=== PATIENT | male | born 1960 | race Caucasian/White ===

== ENCOUNTER 2017-03-20 09:36 | Day surgery (SDC) | payer OTHER, SELFPAY ==
[2017-03-20] VITALS (7 sets, daily range): BP systolic 85–128; BP diastolic 51–92; PULSE 51–61; RESP 16; TEMP 36.2–36.3; O2SAT 97–100; BMI 26.4
--- NOTE | 2017-03-20 | EGD_PTH ---
PATIENT: SUKHWINDER CASTILLO LOC: [facility] U#:[id number] AGE/SX: 56/M ROOM: RE03/20/[address]: Dr. Cyril Johnson MD : 1960 BED: DIS: 03/20/2017 SPEC #: [id number] RECD: 03/20/17 12:31 STATUS: BRITTON FABI #: [id number] MAAME: 03/20/17 00:[address]: Cyril Johnson DEPT: SURGICAL PATHOLOGY RECD BY: Guerrero Post ENTERED: 03/20/17 13:30 SP TYPE: EGD BIOPSY DOUGLAS DR: Dr. Phillip Amaya MD Tissues: A - Gastric mucous membrane B - Gastric mucous membrane C - Sigmoid colon biopsy D - Rectum, NOS Procedures: Special Stain Group II Surgery Specimen Level IV Alcian Blue/PAS (control) HEADER OPERATION: EGD and colonoscopy PRE-OP DIAGNOSIS: RUQ pain TISSUE SUBMITTED: A ? Antral biopsy, B ? GE junction, C ? Mid sigmoid polyp, D ? Rectal polyp MICROSCOPIC DIAGNOSIS A. Antral biopsy: Mild gastritis. B. GE junction, biopsy: Fragments of gastroesophageal mucosa with focal Intestinal metaplasia (goblet cell metaplasia) consistent with Santana?s esophagus. Mild chronic inflammation. Negative for dysplasia. C. Mid sigmoid polyp, biopsy: Tubular adenoma. D. Rectal polyp, biopsy: Tubular adenoma. SJ:rg 03/21/17 COMMENT A. The results of immunohistochemistry for Helicobacter pylori will be reported separately ([id number]). B. Alcian blue/PAS stain with matched control is used in the evaluation of the specimen. MICROSCOPIC DESCRIPTION Slides are reviewed. A. The specimen shows fragments of gastric mucosa with chronic inflammatory cell infiltrates in the lamina propria consisting of lymphocytes and plasma cells, consistent with mild chronic gastritis. GROSS DESCRIPTION A - Received in fixative is one container labeled with the patient's name and designated antral biopsy. The specimen consists of one irregular fragment of light neal soft tissue that measures 0.4 x 0.3 x 0.1 cm. The specimen is totally submitted in one cassette. B - Received in fixative is one container labeled with the patient's name and designated GE junction. The specimen consists of multiple irregular fragments of light neal soft tissue that in aggregate measure 1 x 0.3 x 0.1 cm. The specimen is totally submitted in one cassette. C - Received in fixative is one container labeled with the patient's name and designated mid sigmoid polyp. The specimen consists of a pink-red polyp measuring 1.5 x 0.9 x 0.4 cm. The apparent base is inked. The specimen is bisected and submitted entirely in one cassette. D - Received in fixative is one container labeled with the patient's name and designated rectal polyp. The specimen consists of a piece of neal-pink polyp measuring 0.4 x 0.3 x 0.2 cm. The specimen is totally submitted in one cassette. / KRZYSZTOF:nathan 03/20/17 TC:1 CPT: 18354 x4, 87149
--- NOTE | 2017-03-20 | IMM_PTH ---
PATIENT: SUKHWINDER CASTILLO LOC: [facility] U#:[id number] AGE/SX: 56/M ROOM: RE03/20/[address]: Dr. Cyril Johnson MD : 1960 BED: DIS: 03/20/2017 SPEC #: [id number] RECD: 03/21/17 11:27 STATUS: BRITTON FABI #: [id number] MAAME: 03/20/17 00:[address]: Cyril Johnson DEPT: IMMUNOHISTOCHEMISTRY RECD BY: Brittany Reyes ENTERED: 03/21/17 11:28 SP TYPE: IMMUNO OTHR DR: Dr. Phillip Amaya MD Tissues: A - Stomach, NOS Procedures: H Pylori (initial) PHYSICIAN & INSTITUTION [place] [address] SPECIMEN INFORMATION: Tissue Source: A ? Antral biopsy Clinical Info: RUQ pain Specimen Number: [id number] CPT code: 27290 METHODOLOGY: Deparaffinized sections of prefer/formalin-fixed tissue or PAP/DQ stained slides are incubated with monoclonal/polyclonal antibodies/oligonucleotide probes. Localization is made via biotin free immunoperoxidase method. Appropriate controls are performed and reacted as expected. Results on target cell population are indicated in the following table: RESULTS: ANTIBODY / CLONE RESULT Block A H Pylori (polyclonal) negative These tests were developed and their performance characteristics determined by [facility]. They may not have been cleared or approved by the U.S. Food and Drug Administration. The FDA has determined that such clearance or approval is not necessary. INTERPRETATION: A. Antrum, biopsy: Negative for Helicobacter pylori organisms. SJ:nathan 03/23/17
--- NOTE | 2017-03-20 11:47 | PCM.OPRPT ---
Problem List (1) Abdominal pain in male Status: Acute (2) Personal history of colonic polyps Status: Acute Report of Operation Date of Procedure: 03/20/17 Pre-Operative Diagnosis: Right upper quadrant abdominal pain. Personal history of colon polyps. Post-Operative Diagnosis: Moderate hiatal hernia, distal esophagitis, mild antral gastritis. Pedunculated polyp of the mid sigmoid colon, sessile polyp of the rectum. Descending and sigmoid diverticulosis Surgery/Procedure Performed:: Esophagogastroduodenoscopy with antral and distal esophageal biopsies. Colonoscopy with hot snare polypectomy mid sigmoid and rectum Description of Surgical Findings:: Timeout and informed consent was obtained. 56-year-old gentleman was taken to the endoscopy space. His oropharynx anesthetized with Cetacaine. He was placed in a left lateral decubitus position. Throughout both the upper and lower endoscopy he received total 100 mg Demerol and 5 mg of Versed is intravenous sedation. Leksell gastroscope was inserted. Proximal mid distal esophagus not grossly remarkable. The EG junction was at 42 cm. Moderate hiatal hernia noted. There is evidence very much consistent with reflux esophagitis and linear erosions. Photographs were obtained. The scope was advanced in the stomach a mild antral erythema noted. No ulcerations. The scope was advanced through the pylorus and the first and portions of the duodenum were inspected. No gross abnormalities. The scope was withdrawn back into the stomach antral biopsy was obtained. The scope was retroflexed and the hiatal hernia noted. The cardia was unremarkable. Greater and lesser curvatures were not remarkable. The scope was placed back in antegrade viewing position and biopsies obtained of the antrum. Hemostasis was intact. Excess fluid and air was aspirated free. The procedure was then proceeded by withdrawing the scope to the distal esophagus. Distal esophageal biopsies were obtained. The scope was then further withdrawn without additional abnormality. Digital rectal exam was performed. Mild hemorrhoidal changes. 2+ enlarged firm diffusely prostate. No focal mass lesions. Flexible colonoscope inserted the rectum advanced through a somewhat tortuous sigmoid colon scope was advanced through the transverse colon and with some transabdominal pressure was advanced to the cecum. Bowel prep was adequate there still was some liquid stool located throughout the colon. The ileocecal valve area was nicely achieved. Scope was then carefully withdrawn from the ascending transverse descending and sigmoid colon. There was diverticulosis involving the descending and sigmoid colon though without evidence of inflammation. A pedunculated 2 cm long polyp was located in the mid sigmoid. A snare cautery blend setting of was used to resect this. I then placed a hemostatic clip at that site. The polyp was retrieved with suction. Hemostasis was intact. The scope was further withdrawn and a 7 mm sessile polyp of the rectum was identified. Photograph was obtained in a hot snare was used to resect and retrieved. The scope was retroflexed and hemorrhoidal changes noted. Excess fluid and air was aspirated free the procedure was completed with the patient tolerating it well. Impression Moderately large hiatal hernia with findings very much consistent with distal esophagitis. These findings would correlate with the patient's complaint of abdominal pain. Mild antral gastritis noted. We will initiate treatment with omeprazole 20 mg twice daily. But unrelated polyp of the mid sigmoid colon and sessile polyp of the rectum. Both with benign gross appearance. Sigmoid and descending colon diverticulosis. The patient will be notified of pathology results of all biopsies and polyp removals. Will recommend a follow-up colonoscopy in no greater than 3 years pending the pathology report. His previous colonoscopy was 2009. Findings the patient has a 2 mm polyp on gallbladder ultrasound. Pending treatment for reflux if symptoms per of abdominal pain persist then would consider hepatobiliary scan. The esophagitis however would correlate with his complaint of pain. Cc: Dr. Amaya The upper endoscopy was started with medications given at 1110. Scope was inserted at 1114. The upper scope was completed at 1118. The colonoscopy was initiated at 1121. The cecum was reached at 1127.19. The procedure was completed at 1143. Cyril Johnson M.D., F.A.C.S. Type of Anesthesia:: IV Sedation
== END 2017-03-20 12:46 | disposition home or self-care (01) ==
LOC: EN 09:36 → AC 09:38
PROVIDERS: Family Provider Family Medicine; PCP Family Medicine; Visit Provider Surgery
PROC: 0DJD8ZZ Inspection of Lower Intestinal Tract, Via Natural or Artificial Opening Endoscopic (ICD-10-PCS; CPT 45378; principal; 2017-03-20 10:40)
DX: K21.0 Gastro-esophageal reflux disease with esophagitis (principal); K29.50 Unspecified chronic gastritis without bleeding; K22.70 Barrett's esophagus without dysplasia; K44.9 Diaphragmatic hernia without obstruction or gangrene; K57.30 Diverticulosis of large intestine without perforation or abscess without bleeding; K56.2 Volvulus; D12.7 Benign neoplasm of rectosigmoid junction; Z87.19 Personal history of other diseases of the digestive system; F17.210 Nicotine dependence, cigarettes, uncomplicated
CPT/HCPCS: 43239; 45385; 88305; 88313; 88342; J7120

== ENCOUNTER → 2018-09-12 06:49 | Outpatient (CLI) | payer OTHER, SELFPAY ==
--- NOTE | 2018-09-12 06:53 | CT_ITS ---
STUDY: LOW DOSE CT LUNG CANCER SCREENING REASON FOR EXAM: Male, 57 years old. 48 pack-year history stopped 2 years ago. RADIATION DOSAGE (If Supplied By Facility): CTDIvol = ( 4.02 ) mGy, DLP = ( 133.41 ) mGycm TECHNIQUE: No contrast was administered. Low dose technique was utilized (average mAS-38 and kVp 120). 1.25 mm axial source images with a slice interval of 1.25-mm were reconstructed in lung windows. 2.5 mm axial source images with a slice interval of 2.5-mm were reconstructed in lung windows. 5.0 mm axial source images with a slice interval of 5.0-mm were reconstructed in soft tissue windows. Nodule measured using lung windows on PACS and/or independent workstation with automated measurement of minimum and maximum diameter. Nodule measurement reported as average diameter rounded to the nearest whole number. Growth is defined as an increase ins size of greater than 1.5 mm. COMPARISON: None. NODULES: Nodule #: 1 Density: Solid Lung location: Right upper lobe: 0.6 cm from pleura Location in series: Series Number: 2 Image: 137 Size - D1 x D2 mm: 4 x 4 mm: 4 mm average diameter Margin: Smooth Shape: Rounded Calcification: Yes Fat: No Temporal comparison: None Nodule #: 2 Density: Solid Lung location: Right middle lobe: 0.4 cm from pleura Location in series: Series Number: 2 Image: 49 Size - D1 x D2 mm: 8 x 6 mm: 7 mm average diameter Margin: Smooth Shape: Carrol shape Calcification: No Fat: No Temporal comparison: None Total lung nodules (excluding granulomas): 1 Emphysema: No Endobronchial lesion: No Aorta: Normal Coronary arteries: There are minimal coronary artery calcifications. Heart: Normal Pulmonary artery: Normal Mediastinal nodes: None Other chest and abdominal findings: Minimal degenerative changes of the thoracic spine. CT/Low Dose CT Lung Screening IMPRESSION: Lung-RADS category 3 - Continue screening with LDCT in 6 months. IMPORTANT NOTES FOR USE: ACR Lung-RADS Version 1.0 Assessment Categories Release Date: June 16, 2013 Category: Coded 0-4 bases on nodule(s) with highest degree of suspicion. Negative screen is defined as categories 1 and 2; a positive screen is defined as categories 3 and 4. Category 3 and 4A nodules that are unchanged on interval CT should be coded as category 2, and individuals returned to screening in 12 months. Category 4X: Category 3 or 4 nodules with additional imaging findings that increase the suspicion of lung cancer, such as spiculation, GGN that doubles in size in 1 year, enlarged lymph notes, etc. Category Modifiers: S (significant finding unrelated to lung cancer) and C (prior history of treated lung cancer) may be added to the 0-4 Lung-RADS Electronically Signed: Galdino Verdugo DO at 15:00 EDT Tel [phone], Service support ,
== END ==
PROVIDERS: Family Provider Family Medicine; PCP Family Medicine; Referring Provider Family Medicine; Visit Provider Family Medicine
DX: Z12.2 Encounter for screening for malignant neoplasm of respiratory organs (principal); Z87.891 Personal history of nicotine dependence
CPT/HCPCS: G0297

== ENCOUNTER → 2019-03-03 07:39 | Outpatient (CLI) | payer OTHER, SELFPAY ==
--- NOTE | 2019-03-03 07:42 | CT_ITS ---
STUDY: LOW DOSE CT LUNG CANCER SCREENING REASON FOR EXAM: Male, 58 years old. LUNG NODULE, LOW DOSE LUNG SCREENING. Pt was 30-40yr 1ppd smoker. Quit 3 yr ago RADIATION DOSAGE (If Supplied By Facility): CTDIvol = ( 4.02 ) mGy, DLP = ( 145.47 ) mGycm TECHNIQUE: No contrast was administered. Low dose technique was utilized (average mAS-38 and kVp 120). 1.25 mm axial source images with a slice interval of 1.25-mm were reconstructed in lung windows. 2.5 mm axial source images with a slice interval of 2.5-mm were reconstructed in lung windows. 5.0 mm axial source images with a slice interval of 5.0-mm were reconstructed in soft tissue windows. Nodule measured using lung windows on PACS and/or independent workstation with automated measurement of minimum and maximum diameter. Nodule measurement reported as average diameter rounded to the nearest whole number. Growth is defined as an increase ins size of greater than 1.5 mm. COMPARISON: CT chest September 12, 2018 NODULES: Nodule #: 1 Density: Solid Lung location: Right middle lobe: cm from pleura Location in series: Series Number: 2 Image: 148 Size - D1 x D2 mm: mm: 7 average diameter Margin: Smooth Shape: Oval Calcification: No Fat: No Temporal comparison: Stable Total lung nodules (excluding granulomas): 1 Emphysema: No Endobronchial lesion: No Aorta: Normal Coronary arteries: Mild coronary artery calcifications. Heart: Normal Pulmonary artery: Normal Mediastinal nodes: Normal Other chest and abdominal findings: No significant. Previously described right upper lobe nodule is a granuloma does not need to be followed. CT/Low Dose CT Lung Screening IMPRESSION: Stable right middle lobe 7 mm nodule. LRADS 2. IMPORTANT NOTES FOR USE: ACR Lung-RADS Version 1.0 Assessment Categories Release Date: June 16, 2013 Category: Coded 0-4 bases on nodule(s) with highest degree of suspicion. Negative screen is defined as categories 1 and 2; a positive screen is defined as categories 3 and 4. Category 3 and 4A nodules that are unchanged on interval CT should be coded as category 2, and individuals returned to screening in 12 months. Category 4X: Category 3 or 4 nodules with additional imaging findings that increase the suspicion of lung cancer, such as spiculation, GGN that doubles in size in 1 year, enlarged lymph notes, etc. Category Modifiers: S (significant finding unrelated to lung cancer) and C (prior history of treated lung cancer) may be added to the 0-4 Lung-RADS Electronically Signed: Donaldo Parker, at 21:33 EST Tel , Service support ,
== END ==
PROVIDERS: Family Provider Family Medicine; PCP Family Medicine; Referring Provider Family Medicine; Visit Provider Family Medicine
DX: Z12.2 Encounter for screening for malignant neoplasm of respiratory organs (principal); Z87.891 Personal history of nicotine dependence; R91.8 Other nonspecific abnormal finding of lung field
CPT/HCPCS: G0297

== ENCOUNTER → 2019-09-12 08:24 | Outpatient (CLI) | payer OTHER, SELFPAY ==
[2019-09-12 12:25] LABS: Absolute Lymphocyte Count 1.75 X10^3/uL (0.83-4.51); Absolute Neutrophil Count 3.4 X10^3/uL (2.0-7.7); Basophil# 0.01 X10^3/uL; Basophil% 0.2 % (0-1); Eosinophil# 0.17 X10^3/uL; Eosinophils% 2.9 % (0-5); Hematocrit 43.8 % (40-54); Lymphocyte # 1.75 X10^3/ul (4.0); Lymphocyte % 30.3 % (19-41); Mean Corp Hgb Conc 34.2 g/dL (32-36); Mean Corpuscular Hgb 31.3 pg (27.0-32.0); Mean Corpuscular Volume 91.3 fL (80-94); Mean Platelet Vol. 10.4 fl (6.2-12.0); Monocyte# 0.49 X10^3/uL; Monocyte% 8.5 % (0-10); NRBC Flagged by Analyzer 0 % (0-5); Neutrophil # 3.35 X10^3/uL (2.7-7.7); Neutrophil % 57.9 % (47-70); Platelet Count 196 K/mm3 (150-450); RBC Distribution Width SD 42.8 fl (35.1-43.9); White Blood Count 5.8 K/mm3 (4.4-11.0)
[2019-09-12 12:42] LABS: ALB/GLOB Ratio 1.3 RATIO (0.9-2.4); AST(SGOT) 23 U/L (15-37); Alanine Aminotransfer ALT/SGPT 37 U/L (16-61); Albumin, Serum 4.1 g/dL (3.2-5.0); Alkaline Phosphatase 65 U/L (45-117); Anion Gap 4 (5-15); BUN 16 mg/dL (7-18); Calcium,Total 10.3 mg/dL (8.5-10.1); Chloride 105 mmol/L (98-107); Cholesterol 203 mg/dL (200); Creatinine, Serum 1.07 mg/dL (0.70-1.30); EST Glomerular Filtration Rate 75 mL/min (>60); Est Glom Filt Rate - Afr Amer 90 mL/min (>60); Globulin 3.2 g/dL (2.2-4.2); Glucose 90 mg/dL (74-106); High Density Lipoprotein 47 mg/dL; PSA,Total - Annual Screen 0.52 ng/mL (0.00-4.00); Protein, Total 7.3 g/dL (6.4-8.2); Sodium Level 139 mmol/L (136-145); Thyroid Stim Hormone (TSH) 1.21 uIU/mL (0.358-3.74); Triglycerides 196 mg/dL; Very Low Density Lipoprotein 39 mg/dL (5-40)
[2019-09-12 12:47] LABS: Vitamin B12 332 pg/mL (211-911)
== END ==
PROVIDERS: PCP Family Medicine; Visit Provider Family Medicine
DX: R53.83 Other fatigue (principal); E78.5 Hyperlipidemia, unspecified; Z12.5 Encounter for screening for malignant neoplasm of prostate
CPT/HCPCS: 36415; 80053; 80061; 82607; 84153; 84443; 85025; G0103

== ENCOUNTER → 2020-10-13 17:16 | Outpatient (CLI) | payer OTHER, SELFPAY ==
--- NOTE | 2020-10-13 17:35 | RAD_ITS ---
STUDY: X-RAY - LUMBAR SPINE REASON FOR EXAM: Male, 59 years old. LOW BACK PAIN TECHNIQUE: 3 view(s) of the lumbar spine were obtained. COMPARISON: None FINDINGS: Normal lumbar lordosis. There is no substantial scoliosis. There is a normal alignment of the vertebrae. There is multilevel endplate spondylosis of the lumbar vertebrae. There is multi-level degenerative disc disease with multi-level disc space narrowing. There is no demonstrated fracture. No acute fracture. Multilevel bilateral facet hypertrophy, more significant from L3 through S1. There is atherosclerotic calcification of the abdominal aorta without a demonstrated aneurysm. RAD/Lumbar Spine 2 or 3 Views IMPRESSION: Multilevel disc degenerative disease with no acute fracture or subluxation. Electronically Signed: Paulina Ngo MD at 0:43 EDT , Service support ,
== END ==
PROVIDERS: PCP Family Medicine; Referring Provider Anesthesiology Pain Medicine; Visit Provider Anesthesiology Pain Medicine
DX: M54.9 Dorsalgia, unspecified (principal)
CPT/HCPCS: 72100

== ENCOUNTER → 2020-10-16 08:26 | Outpatient (CLI) | payer OTHER, SELFPAY ==
[2020-10-16 09:02] LABS: Color, Urine Yellow (Yellow); Glucose, Dipstick Normal (Normal); Ketone-Dipstick Negative (Negative); Leukocyte Esterase-Dipstick Negative /ul (Negative); Nitrite-Dipstick Negative (Negative); Occult Blood-Urine Negative /ul (Negative); Protein-Dipstick Negative (Negative); Urine Bilirubin Dipstick Negative (Negative); Urine Clarity Clear (Clear); Urine Urobilinogen Normal (Normal); Urine pH 6.5 (5.0 - 8.0)
== END ==
PROVIDERS: PCP Family Medicine; Referring Provider Family Medicine; Visit Provider Family Medicine
DX: R82.998 Other abnormal findings in urine (principal)
CPT/HCPCS: 81002

== ENCOUNTER → 2020-10-23 08:59 | Outpatient (CLI) | payer OTHER, SELFPAY ==
--- NOTE | 2020-10-23 09:14 | US_ITS ---
STUDY: ABDOMINAL ULTRASOUND - RIGHT UPPER QUADRANT REASON FOR VISIT: Male, 59 years old PAIN TECHNIQUE: Ultrasound evaluation of the right upper quadrant was performed with real-time and static obando-scale imaging. TECHNICAL QUALITY: Adequate. COMPARISON: None. FINDINGS: Liver: The liver measures 16.0 cm. There is increased echogenicity consistent with fatty infiltration. The bile ducts are within normal limits. There is hepatic color flow. The direction of portal flow is hepatopetal. There is no demonstrated mass lesion. Gallbladder: Normal distended gallbladder. The gallbladder wall measures 2 mm. There is a negative sonographic Jacobson''s sign. There is no pericholecystic fluid. There are no gallstones. Common Bile Duct (C.B.D.): The common bile duct measures 4 mm. Pancreas: Normal size of the head, body and tail of the pancreas. There is normal echogenicity of the pancreas. There is no demonstrated pancreatic mass or cyst. Right Kidney: Normal size of the right kidney. The right kidney measures 10.4 cm. Normal renal cortex. The right cortex measures 1.5 cm. 1.4 cm cyst in the midsection of the right kidney. 2 cm exophytic cyst lower pole the right kidney. There is no right hydronephrosis. US/Abdomen Limited IMPRESSION: Fatty infiltration of the liver. Electronically Signed: Eric Simpson MD at 10:47 EDT Tel , Service support ,
== END ==
PROVIDERS: PCP Family Medicine; Referring Provider Family Medicine; Visit Provider Family Medicine
DX: R10.11 Right upper quadrant pain (principal)
CPT/HCPCS: 76705

== ENCOUNTER 2021-12-21 07:50 | Day surgery (SDC) | payer OTHER, SELFPAY ==
--- NOTE | 2021-12-21 | IMM_PTH ---
PATIENT: SUKHWINDER CASTILLO LOC: EN U#:[id number] AGE/SX: 61/M ROOM: RE12/21/[address]: Dr. Lalito Powers DO : 1960 BED: DIS: 12/21/2021 SPEC #: [id number] RECD: 12/23/21 13:24 STATUS: BRITTON REPauline #: [id number] MAAME: 12/21/21 00:[address]: Lalito Powers DEPT: IMMUNOHISTOCHEMISTRY RECD BY: Brittany Reyes ENTERED: 12/23/21 13:25 SP TYPE: IMMUNO OT DR: KATEY Perez Tissues: B - Esophagus, NOS Procedures: P53 (initial) KI-67 (add) PHYSICIAN & INSTITUTION [address] [address] SPECIMEN INFORMATION: Tissue Source: B ? Distal esophagus Clinical Info: Santana?s esophagus, screening Specimen Number: [id number] CPT code: 08964, 87828 METHODOLOGY: Deparaffinized sections of prefer/formalin-fixed tissue or PAP/DQ stained slides are incubated with monoclonal/polyclonal antibodies/oligonucleotide probes. Localization is made via biotin free immunoperoxidase method. Appropriate controls are performed and reacted as expected. Results on target cell population are indicated in the following table: RESULTS: ANTIBODY / CLONE RESULT Block B P53 (DO-7) negative Ki-67 (30-9) positive, low These tests were developed and their performance characteristics determined by [facility]. They may not have been cleared or approved by the U.S. Food and Drug Administration. The FDA has determined that such clearance or approval is not necessary. The above immunohistochemical/dualISH markers are ordered and reviewed by the Pathologist. INTERPRETATION: B. Distal esophagus, biopsy: No evidence of dysplasia. AM:nathan 12/26/2021
[2021-12-21 08:17] VITALS: BP 127/83; PULSE 50; RESP 16; TEMP 36.4; O2SAT 100; BMI 30.2
[2021-12-21] MEDS: Lactated Ringers 1,000 ML 15 ML IV (08:22)
--- NOTE | 2021-12-21 09:15 | EGD_PTH ---
PATIENT: SUKHWINDER CASTILLO LOC: EN U#:[id number] AGE/SX: 61/M ROOM: RE12/21/[address]: Dr. Lalito Powers DO : 1960 BED: DIS: 12/21/2021 SPEC #: [id number] RECD: 12/21/21 14:29 STATUS: BRITTON FABI #: [id number] MAAME: 12/21/21 09:[address]: Lalito Powers DEPT: SURGICAL PATHOLOGY RECD BY: Nessa Johansen ENTERED: 12/22/21 08:57 SP TYPE: EGD BIOPSY OT DR: KATEY Perez Tissues: A - Duodenum, NOS B - Esophagus, NOS C - Ascending colon D - COLON BIOPSY Procedures: Special Stain Group II Surgery Specimen Level IV Alcian Blue/PAS (control) HEADER OPERATION: Colonoscopy, EGD ([facility]) PRE-OP DIAGNOSIS: Santana?s esophagus, screening TISSUE SUBMITTED: A - Duodenal ulcer biopsy, B - Distal esophagus biopsy, C - Ascending colon polyp, D - Splenic flexure polyp MICROSCOPIC DIAGNOSIS A. Duodenal ulcer, biopsy: Minimal nonspecific chronic inflammation. B. Distal esophagus, biopsy: Gastroesophageal junctional mucosa with chronic inflammation. Focal changes of reflux. Goblet cell metaplasia consistent with Santana?s esophagus. No evidence of dysplasia. See comment. C. Ascending colon polyp, biopsy: Tubular adenoma. D. Colonic polyp at hepatic flexure, biopsy: Fragments of tubular adenoma. AM:nathan 12/23/2021 COMMENT B. Alcian blue/PAS stain with matched control supports the above diagnosis. Immunohistochemistry ([id number]) for P53 and Ki-67 will be performed and results will be reported separately. MICROSCOPIC DESCRIPTION Slides are reviewed. GROSS DESCRIPTION A - Received in fixative is one container labeled with the patient's name and designated duodenum. The specimen consists of two irregular fragments of light neal soft tissue that in aggregate measure 0.6 x 0.6 x 0.1 cm. The specimen is totally submitted in one cassette. B - Received in fixative is one container labeled with the patient's name and designated distal esophagus. The specimen consists of multiple irregular fragments of light neal soft tissue that in aggregate measure 1 x 0.5 x 0.1 cm. The specimen is totally submitted in one cassette. C - Received in fixative is one container labeled with the patient's name and designated ascending colon polyp. The specimen consists of one irregular fragment of light neal soft tissue that measures 0.5 x 0.3 x 0.1 cm. The specimen is totally submitted in one cassette. D - Received in fixative is one container labeled with the patient's name and designated splenic flexure polyp. The specimen consists of two irregular fragments of light neal soft tissue that in aggregate measure 0.7 x 0.3 x 0.1 cm. The specimen is totally submitted in one cassette. / AM:nathan 12/22/2021 TC:3 CPT: 11997 x4
--- NOTE | 2021-12-21 09:40 | PCM.HP.BLA ---
History and Physical Date of Admission: 12/21/21 60 M who presents to the office today for Initial consult. Satish established with this clinic 12.02.21 with referral from PCP. He has been having generalized abdominal pain for several months with loss of appetite, loose stools, bad taste in his mouth with interrupted sleep and generally feeling unwell. Symptoms were present approximately four months ago. 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 He then presented to [facility] 09.02.21 and was hospitalized for a couple days to treat this. Symptoms have since resolved. He was also having issue with reflux that is currently controlled with us of PPI. EGD and colonoscopy with Dr. Matt Johnson. EGD found large hiatal hernia; distal esophagitis, Santana?s esophagus; mild gastritis (Omeprazole 20mg). H.Pylori negative. Colonoscopy found sigmoid and rectal TA polyps; sigmoid/descending diverticulosis ROS Const Constitutional: No anorexia, fatigue, fever(s), weight change or sleep problems Eyes Eyes: No change in vision ENT ENT: No abnormal hearing, difficulty swallowing, mouth lesions, tongue swelling or throat swelling Resp Respiratory: No cough or shortness of breath Cardio Cardiology: No chest pain at rest, chest pain with exertion, shortness of breath or dyspnea on exertion Gastro GI: No difficulty swallowing Genitourinary Male: No difficulty urinating or burning urination Musc Musculoskeletal: No joint pain, joint swelling, muscle weakness or decreased muscle mass Skin Skin: No hair loss in leg, yellowing of the eye, itchy eyes, rash, skin ulcer or skin swelling Neuro Neurology: No abnormal hearing, abnormal movements, confusion, unsteady gait/balance or memory loss Psych Psychiatric: No anxiety, No confusion and No memory loss Endo Endocrine: No fatigue or weight change Aller/Imm Allergy/Immunologic: No itchy eyes, throat swelling or tongue swelling Renato/Lymp Hematologic/Lymphatic: No easy bleeding, easy bruising or enlarged lymph nodes Exam Const General: cooperative and comfortable Nutritional Appearance: average body habitus and well nourished [facility] Head: normal to inspection Ears: hearing grossly normal bilaterally Nose: external nose normal Face and sinus: normal facial exam Mouth: oral mucosae normal Throat: posterior oropharynx normal Eyes General: appearance normal, both eyes and all related structures Neck Neck: normal visual inspection Chest Chest palpation & inspection: normal inspection of the chest and normal palpation of entire chest wall Resp Effort & Inspection: normal respiratory effort Auscultation: Bilateral: Clear to Auscultation Cardio Palpation: normal PMI Rate: regular rate Rhythm: regular rhythm GI Inspection: normal to inspection Auscultation: normal bowel sounds Percussion: normal to percussion Palpation: no hepatosplenomegaly Skin General: no rashes or lesions noted Neuro General: patient alert Extrem General: normal to inspection Psych Affect: normal affect Quality Reporting Tobacco Screening ([facility] 138) Smoking Status: Former smoker Assessment and Plan Assessment and Plan (1) Barretts esophagus: ?Status:?Chronic ?Plan: He will undergo surveillance of Santana's esophagus.? He is on PPI therapy and is not having any signs or symptoms of reflux at this time.? He was explained alternatives, risk, benefits including outstanding bleeding, infection, sepsis, perforation, need for emergent .? He will have an ASA of 1. (2) Encounter for screening for malignant neoplasm of colon: ?Status:?Chronic ?Plan: He will undergo a screening colonoscopy as he has a history of adenomatous polyps 5 years.? He was explained Alternatives, risk, benefits including outstanding bleeding, infection, sepsis, perforation, need for emergent .? He will have an ASA 1 for the colonoscopy. ? ? ? Orders: Orders Colonoscopy 01/24/22 Z12.11 - Encounter for screening for malignant neoplasm of colon ? EGD 01/24/22 K22.70 - Santana's esophagus without dysplasia ? I have examined the patient and the H&P has been reviewed. There are no clinical changes since date of exam.
[2021-12-21 10:15] VITALS: BP 127/83; BP 93/48; PULSE 63; RESP 16; TEMP 36.3; O2SAT 100
--- NOTE | 2021-12-21 10:16 | OP.EGD_ITS ---
Patient Name: Satish Barry Procedure Date: 12/21/2021 9:38 AM Date of : 1960 Age: 61 Procedure: Upper GI endoscopy Indications: Follow-up of Santana's esophagus Providers: Lalito Powers DO Medicines: Monitored Anesthesia Care Patient Profile: This is a 61 year old male. Refer to note in patient chart for documentation of history and physical. Patient has symptoms of acute epigastric abdominal pain. Complications: No immediate complications. Procedure: Pre-Anesthesia Assessment: - Prior to the procedure, a History and Physical was performed, and patient medications and allergies were reviewed. The risks and benefits of the procedure and the sedation options and risks were discussed with the patient. All questions were answered and informed consent was obtained. Patient identification and proposed procedure were verified by the physician in the pre-procedure area. Mental Status Examination: alert and oriented. Airway Examination: normal oropharyngeal airway and neck mobility. Respiratory Examination: clear to auscultation. CV Examination: normal. Prophylactic Antibiotics: The patient does not require prophylactic antibiotics. Prior Anticoagulants: The patient has taken no previous anticoagulant or antiplatelet agents. ASA Grade Assessment: II - A patient with mild systemic disease. After reviewing the risks and benefits, the patient was deemed in satisfactory condition to undergo the procedure. The anesthesia plan was to use moderate sedation / analgesia (conscious sedation). Immediately prior to administration of medications, the patient was re-assessed for adequacy to receive sedatives. The heart rate, respiratory rate, oxygen saturations, blood pressure, adequacy of pulmonary ventilation, and response to care were monitored throughout the procedure. The physical status of the patient was re-assessed after the procedure. After obtaining informed consent, the endoscope was passed under direct vision. Throughout the procedure, the patient's blood pressure, pulse, and oxygen saturations were monitored continuously. The colonoscope was introduced through the mouth, and advanced to the second part of duodenum. The upper GI endoscopy was accomplished without difficulty. The patient tolerated the procedure well. Scope In: 9:50:16 AM Scope Out: 9:56:01 AM Total Procedure Duration Time 0 hours 5 minutes 45 seconds Findings: The Z-line was irregular and was found 40 cm from the incisors. Biopsies were taken with a cold forceps for histology. Verification of patient identification for the specimen was done. Estimated blood loss was minimal. A small hiatal hernia was present. Three non-bleeding cratered duodenal ulcers with no stigmata of bleeding were found in the duodenal bulb. The largest lesion was 6 mm in largest dimension. Biopsies were taken with a cold forceps for histology. Verification of patient identification for the specimen was done. Estimated blood loss was minimal. Impression: - Z-line irregular, 40 cm from the incisors. Biopsied. - Small hiatal hernia. - Multiple non-bleeding duodenal ulcers with no stigmata of bleeding. Biopsied. Recommendation: - Discharge patient to home. - Resume previous diet. - Continue present medications. - Await pathology results. Procedure Code(s): --- Professional --- 74407, Esophagogastroduodenoscopy, flexible, transoral; with biopsy, single or multiple CPT copyright 2017 [employer]. All rights reserved. The codes documented in this report are preliminary and upon disease case manager rn review may be revised to meet current compliance requirements. Lalito Powers DO 12/21/2021 10:16:17 AM This report has been signed electronically. Number of Addenda: 0 Note Initiated On: 12/21/2021 9:38 AM
--- NOTE | 2021-12-21 10:16 | OP.CCLET_ITS ---
12/21/2021 Pinky Young [place] [address] [address] Re : Upper GI endoscopy procedure for Satish Barry Dear Dr. Young This procedure was performed on Tuesday, December 21, 2021. My impressions and recommendations are as follows: Impressions : - Z-line irregular, 40 cm from the incisors. Biopsied. - Small hiatal hernia. - Multiple non-bleeding duodenal ulcers with no stigmata of bleeding. Biopsied. Recommendations : - Discharge patient to home. - Resume previous diet. - Continue present medications. - Await pathology results. My findings are described in the full procedure note, which is enclosed. If I can be of further assistance, please feel free to contact me at . Sincerely, Lalito Powers, 12/21/2021 10:16:17 AM This report has been signed electronically.
[2021-12-21 10:20] VITALS: BP 113/59; BP 127/83; PULSE 64; RESP 16; O2SAT 99
--- NOTE | 2021-12-21 10:21 | OP.COLON_ITS ---
Patient Name: Satish Barry Procedure Date: 12/21/2021 9:56 AM Date of : 1960 Age: 61 Procedure: Colonoscopy Indications: Screening for colorectal malignant neoplasm Providers: Lalito Powers DO Medicines: Monitored Anesthesia Care Patient Profile: This is a 61 year old male. Refer to note in patient chart for documentation of history and physical. Patient has symptoms of acute epigastric abdominal pain. Last Colonoscopy: 5 years ago. Complications: No immediate complications. Procedure: Pre-Anesthesia Assessment: - Prior to the procedure, a History and Physical was performed, and patient medications and allergies were reviewed. The risks and benefits of the procedure and the sedation options and risks were discussed with the patient. All questions were answered and informed consent was obtained. Patient identification and proposed procedure were verified by the physician in the pre-procedure area. Mental Status Examination: alert and oriented. Airway Examination: normal oropharyngeal airway and neck mobility. Respiratory Examination: clear to auscultation. CV Examination: normal. Prophylactic Antibiotics: The patient does not require prophylactic antibiotics. Prior Anticoagulants: The patient has taken no previous anticoagulant or antiplatelet agents. ASA Grade Assessment: II - A patient with mild systemic disease. After reviewing the risks and benefits, the patient was deemed in satisfactory condition to undergo the procedure. The anesthesia plan was to use monitored anesthesia care (MAC). Immediately prior to administration of medications, the patient was re-assessed for adequacy to receive sedatives. The heart rate, respiratory rate, oxygen saturations, blood pressure, adequacy of pulmonary ventilation, and response to care were monitored throughout the procedure. The physical status of the patient was re-assessed after the procedure. After I obtained informed consent, the scope was passed under direct vision. Throughout the procedure, the patient's blood pressure, pulse, and oxygen saturations were monitored continuously. The colonoscope was introduced through the anus and advanced to the cecum, identified by appendiceal orifice and ileocecal valve. The colonoscopy was performed without difficulty. The patient tolerated the procedure well. The quality of the bowel preparation was adequate. Scope In: 9:58:17 AM Scope Withdrawal Time 0 hours 5 minutes 53 seconds Scope Out: 10:11:25 AM Total Procedure Duration Time 0 hours 13 minutes 8 seconds Findings: The perianal and digital rectal examinations were normal. Two sessile polyps were found in the splenic flexure and ascending colon. The polyps were 1 to 2 mm in size. These polyps were removed with a jumbo cold forceps. Resection and retrieval were complete. Verification of patient identification for the specimen was done. Estimated blood loss was minimal. A few small and large-mouthed diverticula were found in the recto-sigmoid colon and sigmoid colon. There was no evidence of diverticular bleeding. Impression: - Two 1 to 2 mm polyps at the splenic flexure and in the ascending colon, removed with a jumbo cold forceps. Resected and retrieved. - Moderate diverticulosis in the recto-sigmoid colon and in the sigmoid colon. There was no evidence of diverticular bleeding. Recommendation: - Discharge patient to home. - Resume previous diet. - Continue present medications. - Await pathology results. - Repeat colonoscopy in 5 years for surveillance. - Return to GI office in 1 week. Procedure Code(s): --- Professional --- 19236, Colonoscopy, flexible; with biopsy, single or multiple CPT copyright 2017 [employer]. All rights reserved. The codes documented in this report are preliminary and upon reclamation engineer review may be revised to meet current compliance requirements. Lalito Powers DO 12/21/2021 10:21:23 AM This report has been signed electronically. Number of Addenda: 0 Note Initiated On: 12/21/2021 9:56 AM
--- NOTE | 2021-12-21 10:22 | OP.CCLET_ITS ---
12/21/2021 Pinky Young [place] [id number] [address] Re : Colonoscopy procedure for Satish Jhonny Dear Dr. Young This procedure was performed on Tuesday, December 21, 2021. My impressions and recommendations are as follows: Impressions : - Two 1 to 2 mm polyps at the splenic flexure and in the ascending colon, removed with a jumbo cold forceps. Resected and retrieved. - Moderate diverticulosis in the recto-sigmoid colon and in the sigmoid colon. There was no evidence of diverticular bleeding. Recommendations : - Discharge patient to home. - Resume previous diet. - Continue present medications. - Await pathology results. - Repeat colonoscopy in 5 years for surveillance. - Return to GI office in 1 week. My findings are described in the full procedure note, which is enclosed. If I can be of further assistance, please feel free to contact me at . Sincerely, Lalito Powers, 12/21/2021 10:21:23 AM This report has been signed electronically.
[2021-12-21 10:25] VITALS: BP 121/61; BP 127/83; PULSE 64; RESP 16; O2SAT 95
[2021-12-21 10:30] VITALS: BP 124/70; BP 127/83; PULSE 60; RESP 16; TEMP 36.5; O2SAT 98
[2021-12-21 10:58] VITALS: BP 127/83
== END 2021-12-21 11:06 | disposition home or self-care (01) ==
LOC: EN 07:51 → AC 07:52
PROVIDERS: PCP Physician Assistant; Referring Provider Physician Assistant; Visit Provider Internal Medicine Gastroenterology
PROC: 0DJD8ZZ Inspection of Lower Intestinal Tract, Via Natural or Artificial Opening Endoscopic (ICD-10-PCS; CPT 45378; principal; 2021-12-21 09:10)
DX: Z12.11 Encounter for screening for malignant neoplasm of colon (principal); K22.70 Barrett's esophagus without dysplasia; D12.3 Benign neoplasm of transverse colon; D12.2 Benign neoplasm of ascending colon; K26.7 Chronic duodenal ulcer without hemorrhage or perforation; K44.9 Diaphragmatic hernia without obstruction or gangrene; K57.30 Diverticulosis of large intestine without perforation or abscess without bleeding; Z87.891 Personal history of nicotine dependence; Z79.899 Other long term (current) drug therapy
CPT/HCPCS: 45380; 43239; 88305; 88313; 88341; 88342; J7120; J2405